=== PATIENT | male | born 1995 | race Caucasian/White ===

== ENCOUNTER 2018-07-12 01:06 | Emergency (ER) | payer SELFPAY ==
[~2018-07-12] VITALS: Ht 185.4 cm; Wt 68.0 kg
[2018-07-12 01:19] VITALS: BP 116/62
== END 2018-07-12 03:20 | disposition left against medical advice (07) ==
LOC: ER 01:06
DX: R10.9 Unspecified abdominal pain (principal); Z53.21 Procedure and treatment not carried out due to patient leaving prior to being seen by health care provider